=== PATIENT | male | born 1965 | race Caucasian/White ===

== ENCOUNTER 2021-02-25 22:22 | Emergency (ER) | payer MEDICAID ==
--- NOTE | 2021-02-25 23:15 | EDM.PDOC ---
ED HPI GENERAL MEDICAL PROBLEM - General Chief Complaint: General Stated Complaint: PAIN IN RIBS AFTER FALL Time Seen by Provider: 02/25/21 22:54 Source of Information: Reports: Patient History Limitations: Reports: No Limitations - History of Present Illness INITIAL COMMENTS - FREE TEXT/NARRATIVE: Luis Eduardo is a 85-year-old male presenting to the ED for evaluation of right posterior chest pain. Patient [place] (3 days ago) and fell hitting his back on the rocks. The patient was able to get back up and did not have much in the way of symptoms after that. Is unclear whether he was pretreated with any alcohol or not at the time. Over the course of the last several days his pain is continued to increase to the point tonight he is complaining of severe pain. He tried to golf today but states that every time he took a swing it felt like he was going to drop him to his needs. He does report having pain with breathing as well but denies any shortness of breath. There is no visible bruising of his back. The patient's focal pain is at the level of T10 lateral to the lateral scapular line. Patient has been taking Aleve for the pain which has been inadequate. He is concerned that he may have broken a rib. Right Back Pain Score (Numeric/FACES): 9 - Related Data Allergies Allergy/AdvReac Type Severity Reaction Status Date / Time Cczunvy-Jcw-Dsv Reductase Allergy Muscle Verified 02/25/21 23:00 Inhibitor Aches Home Meds: Home Meds Levothyroxine 1 tab PO DAILY 02/25/21 [History] Sildenafil [Revatio] 1 tab PO ASDIRECTED PRN 02/25/21 [History] busPIRone [Buspar] 1 tab PO BEDTIME PRN 02/25/21 [History] clonazePAM [Clonazepam] 1 tab PO ASDIRECTED PRN 02/25/21 [History] Lidocaine 5% [Lidoderm 5%] 1 patch TOP DAILY #10 patch 02/26/21 [Rx] Past Medical History HEENT History: Reports: Impaired Vision Psychiatric History: Reports: Anxiety Endocrine/Metabolic History: Reports: Hyperthyroidism - Infectious Disease History Infectious Disease History: Reports: Chicken Pox - Past Surgical History Musculoskeletal Surgical History: Reports: Arthroscopic Knee Social & Family History - Tobacco Use Tobacco Use Status *Q: Never Tobacco User - Caffeine Use Caffeine Use: Reports: Coffee, Energy Drinks - Alcohol Use Date of Last Drink: 02/25/21 - Recreational Drug Use Recreational Drug Use: No ED ROS GENERAL - Review of Systems Review Of Systems: See Below Constitutional: Reports: No Symptoms HEENT: Reports: No Symptoms Respiratory: Reports: Shortness of Breath (Only secondary to pain) Cardiovascular: Reports: Chest Pain (Right posterior chest pain that worsens with deep inspiration or movement.) Endocrine: Reports: No Symptoms GI/Abdominal: Reports: No Symptoms : Reports: No Symptoms Musculoskeletal: Reports: No Symptoms Skin: Denies: Bruising Neurological: Reports: No Symptoms Psychiatric: Reports: No Symptoms Hematologic/Lymphatic: Reports: No Symptoms Immunologic: Reports: No Symptoms ED EXAM, GENERAL - Physical Exam Exam: See Below Exam Limited By: Intoxication General Appearance: Alert, Anxious, Mild Distress Eye Exam: Bilateral Eye: EOMI, PERRL Head: Atraumatic, Normocephalic Neck: Normal Inspection, Supple Respiratory/Chest: Lungs Clear, Normal Breath Sounds, Splinting (Mild splinting with respiration), Other (Point tenderness with palpation over the posterior right chest at the level of T10 just lateral to the lateral scapular line. No obvious bruising identified.) Cardiovascular: Normal Peripheral Pulses, Regular Rate, Rhythm, No Murmur GI/Abdominal: Normal Bowel Sounds, Soft, Non-Tender Back Exam: Normal Inspection, Full Range of Motion, Other (Pain with movement of the back only and that it causes irritation over the area of the posterior chest) Extremities: Normal Inspection Neurological: Alert, Oriented, Normal Cognition, No Motor/Sensory Deficits Psychiatric: Normal Affect, Normal Mood Skin Exam: Warm, Dry, Intact, Normal Color. No: Ecchymosis Course - Vital Signs Last Recorded V/S: Last Vital Signs Temp 35.6 C L 02/25/21 23:05 Pulse 77 02/25/21 23:05 Resp 16 02/25/21 23:05 BP 119/84 02/25/21 23:05 Pulse Ox 96 02/25/21 23:05 - Orders/Labs/Meds Meds: Medications Discontinued Medications Generic Name Dose Route Start Last Admin Trade Name Freq PRN Reason Stop Dose Admin Lidocaine 700 mg 02/25/21 23:46 02/25/21 23:53 Lidocaine 5% 700 Mg Patch TRDERM 02/25/21 23:47 700 mg ONETIME ONE Administration - Radiology Interpretation Free Text/Narrative:: I reviewed the CT of the chest without contrast as well as the report showing: - Re-Assessments/Exams Free Text/Narrative Re-Assessment/Exam: 02/26/21 00:[address] of the chest showing no evidence of rib fractures, pulmonary injury, injury to the liver, pneumothorax, or pleural effusion. The patient had a Lidoderm 5% patch applied to the area of pain which is now markedly improved. We will continue to use this on an ongoing basis. I did give the patient a work note excusing him from work this week as I do not believe he should be doing any heavy lifting until recovered. Indications return to the ED were discussed and patient was discharged in satisfactory condition. Departure - Departure Time of Disposition: 00:39 Disposition: Home, Self-Care 01 Clinical Impression: Chest wall contusion Qualifiers: Encounter type: initial encounter Laterality: right Qualified Code(s): S20.211A - Contusion of right front wall of thorax, initial encounter - Discharge Information Prescriptions: Lidocaine 5% [Lidoderm 5%] 1 patch TOP DAILY #10 patch Instructions: Rib Contusion, Blunt Chest Trauma Referrals: Dieter Bradshaw MD [Primary Care Provider] - Forms: ED Department Discharge Care Plan Goals: The evaluation including your CT of the chest without contrast is determined that you have a deep bruise to the right posterior chest wall as a result of falling on the rocks. There was no evidence for any rib fracture or lung injury. Your liver also appeared to be uninjured. We will put you on Lidoderm 5% lidocaine patches. You may apply one for 12 hours and then have it off for 12 hours each day. I have prescribed 10 of them for you. I would like you to rest this week with very light duty without lifting more than 10 pounds. This will allow the muscle to heal as these are core muscles and constantly in movement. Return to the ER should you develop any significant shortness of breath. Sepsis Event Note (ED) - Evaluation Sepsis Screening Result: No Definite Risk - Focused Exam Vital Signs: Vital Signs Temp Pulse Resp BP Pulse Ox 02/25/21 23:05 35.6 C L 77 16 119/84 96 02/25/21 22:57 35.6 C L 77 16 119/84 96 - Problem List & Annotations (1) Chest wall contusion SNOMED Code(s): 63574813 Code(s): S20.219A - CONTUSION OF UNSPECIFIED FRONT WALL OF THORAX, INIT ENCNTR Status: Acute Priority: Medium Current Visit: Yes Qualifiers: Encounter type: initial encounter Laterality: right Qualified Code(s): S20.211A - Contusion of right front wall of thorax, initial encounter - Problem List Review Problem List Initiated/Reviewed/Updated: Yes
[2021-02-25] MEDS ORDERED: Lidocaine 5% 700 MG Patch TRDERM ONE (23:46)
--- NOTE | 2021-02-26 00:08 | CRLCT ---
For Patients: As a result of the Century Cures Act, medical imaging exams and procedure reports are released immediately into your electronic medical record. You may view this report before your referring provider. If you have questions, please contact your health care provider. INDICATION: Fall 2 days ago, right posterior chest pain TECHNIQUE: CT chest without i.v. contrast. Coronal and sagittal reformats were obtained. COMPARISON: None FINDINGS: Cardiovascular: The heart has an unremarkable appearance and size. The pulmonary arteries are unremarkable in appearance. No sign of aneurysm seen in the thoracic aorta. The presence of aortic dissection cannot be evaluated without the use of intravenous contrast. Mediastinum: Calcified subcarinal left hilar lymph nodes are present from prior granulomatous infection. Lung: Both lungs are unremarkable in appearance. Pleura and pericardium: No sign of pleural effusion seen. No significant pericardial effusion is present. Chest wall and axilla: No mass or adenopathy seen. Bone: No definite acute osseous injuries are seen. Upper abdomen: Unremarkable. IMPRESSION: 1. Unremarkable CT appearance of the chest. Dictated by Harrison Roberson MD @ 02/26/2021 12:07:04 AM Please note that all CT scans at this facility use dose modulation, iterative reconstruction, and/or weight-based dosing when appropriate to reduce radiation dose to as low as reasonably achievable. Dictated by: Harrison Roberson MD @ 02/26/2021 00:07:22 (Electronically Signed)
== END 2021-02-26 00:51 | disposition home or self-care (01) ==
LOC: EDBD 22:22 → JP.ED 22:22
DX: S20.211A Contusion of right front wall of thorax, initial encounter (principal); E03.9 Hypothyroidism, unspecified; Z79.899 Other long term (current) drug therapy; Z88.8 Allergy status to other drugs, medicaments and biological substances; W18.09XA Striking against other object with subsequent fall, initial encounter
CPT/HCPCS: 71250; 99283; A9270

== ENCOUNTER 2021-03-02 22:51 | Emergency (ER) | payer MEDICAID ==
--- NOTE | 2021-03-03 00:43 | EDM.PDOCBH ---
ED HPI GENERAL MEDICAL PROBLEM - General Chief Complaint: Drug or Alcohol Abuse Stated Complaint: POS ALCOHOL POSIONING?/ NEEDS TO DETOX? Time Seen by Provider: 03/03/21 00:05 Source of Information: Reports: Patient, Significant Other History Limitations: Reports: Altered Mental Status, Intoxication - History of Present Illness INITIAL COMMENTS - FREE TEXT/NARRATIVE: 55-year-old male, chronic alcoholic, has been drinking for a week. No physical symptoms but is significant other is worried that he has "alcohol poisoning". He took 5 clonazepam yesterday when she would not let him drink. Duration: Week(s): (Drinking for 1 week after several months of sobriety) back pain Pain Score (Numeric/FACES): 0 - Related Data Allergies Allergy/AdvReac Type Severity Reaction Status Date / Time Gxkaibl-Ryg-Rhz Reductase Allergy Muscle Verified 03/02/21 23:41 Inhibitor Aches Home Meds: Home Meds Levothyroxine 1 tab PO DAILY 02/25/21 [History] Sildenafil [Revatio] 1 tab PO ASDIRECTED PRN 02/25/21 [History] busPIRone [Buspar] 1 tab PO BEDTIME PRN 02/25/21 [History] clonazePAM [Clonazepam] 1 tab PO ASDIRECTED PRN 02/25/21 [History] Lidocaine 5% [Lidoderm 5%] 1 patch TOP DAILY #10 patch 02/26/21 [Rx] Past Medical History HEENT History: Reports: Impaired Vision Psychiatric History: Reports: Anxiety Endocrine/Metabolic History: Reports: Hyperthyroidism - Infectious Disease History Infectious Disease History: Reports: Chicken Pox - Past Surgical History Musculoskeletal Surgical History: Reports: Arthroscopic Knee Social & Family History - Tobacco Use Tobacco Use Status *Q: Never Tobacco User - Caffeine Use Caffeine Use: Reports: Coffee, Energy Drinks - Recreational Drug Use Recreational Drug Use: No ED ROS GENERAL - Review of Systems Review Of Systems: See Below Constitutional: Denies: Fever, Chills Respiratory: Denies: Shortness of Breath, Cough Cardiovascular: Denies: Chest Pain GI/Abdominal: Denies: Abdominal Pain, Hematemesis, Nausea, Vomiting Skin: Reports: No Symptoms Neurological: Denies: Headache Psychiatric: Reports: Anxiety ED EXAM, BEHAVIORAL HEALTH - Physical Exam Exam: See Below Exam Limited By: No Limitations General Appearance: Alert, No Apparent Distress, Other (Obviously intoxicated) Eye Exam: Bilateral Eye: Conjunctival Injection Head: Atraumatic Respiratory/Chest: No Respiratory Distress Cardiovascular: Regular Rate, Rhythm Neurological: Alert, No Motor/Sensory Deficits Psychiatric: Oriented. No: Depressed Mood, Flat Affect Skin Exam: Warm, Dry COURSE, BEHAVIORAL HEALTH COMP - Course Vital Signs: Last Vital Signs Temp 97.9 F 03/02/21 23:58 Pulse 83 03/02/21 23:58 Resp 16 03/02/21 23:58 BP 137/86 03/02/21 23:58 Pulse Ox 96 03/02/21 23:58 Re-Assessment/Re-Exam: Could not convince the patient to go to detox. I reassured both him and his significant other that he will not go through serious withdrawal after drinking for just 1 week. He was given ten 1 mg clonazepam to take every 8 hours that can be given to him by his significant other if he is not drinking, he should not do both. If this is unsuccessful I recommended detox at [facility]. He has been there several times before. Departure - Departure Time of Disposition: 00:45 Disposition: Home, Self-Care 01 Clinical Impression: Alcohol abuse - Discharge Information Instructions: Alcohol Intoxication, [id number] Referrals: PCP,None [Primary Care Provider] - Forms: ED Department Discharge Care Plan Goals: Use clonazepam every 8 hours as needed after stopping alcohol, there is no reason to do both. Avoid all alcohol intake in the future. Sepsis Event Note (ED) - Evaluation Sepsis Screening Result: No Definite Risk - Focused Exam Vital Signs: Vital Signs Temp Pulse Resp BP Pulse Ox 03/02/21 23:58 97.9 F 83 16 137/86 96 03/02/21 23:38 97.9 F 83 16 137/86 96
== END 2021-03-03 01:00 | disposition home or self-care (01) ==
LOC: JP.ED 22:51
DX: F10.129 Alcohol abuse with intoxication, unspecified (principal); E03.9 Hypothyroidism, unspecified; Z88.8 Allergy status to other drugs, medicaments and biological substances; Z79.899 Other long term (current) drug therapy
CPT/HCPCS: 99283

== ENCOUNTER 2023-03-23 12:13 | Emergency (ER) | payer MEDICAID ==
[2023-03-23] MEDS ORDERED: Sodium Chloride 0.9% 10 ML Syringe FLUSH PRN (13:22)
[2023-03-23 13:35] LABS: HEMATOCRIT 51.3 % (38.4-49.7); MEAN CORPUSCULAR HEMOGLOBIN 32.2 pg (31.6-35.5); MEAN CORPUSCULAR HGB CONC 35.7 g/dL (31.6-35.5); MEAN CORPUSCULAR VOLUME 90.3 fL (81.4-99.0); RED BLOOD CELL COUNT 5.68 M/uL (4.14-5.76); WHITE BLOOD CELL COUNT,WBC 7.4 K/uL (3.2-11.0)
[2023-03-23 13:38] LABS: HEMOGLOBIN 18.3 g/dL (12.9-16.9)
[2023-03-23] MEDS ORDERED: Sodium Chloride 0.9% 1,000 ML IV ONE (13:38)
[2023-03-23 13:59] LABS: ALANINE AMINOTRANSFERASE,ALT 50 U/L (12-78); ALKALINE PHOSPHATASE 78 U/L (46-116); ANION GAP 12.6 mmol/L (5.0-14.0); ASPARTATE AMNIOTRANSFERASE,AST 40 U/L (15-37); BILIRUBIN TOTAL 0.3 mg/dL (0.2-1.0); BLOOD UREA NITROGEN,BUN 9 mg/dL (7-18); CALCIUM 8.1 mg/dL (8.5-10.1); CARBON DIOXIDE,CO2 27 mmol/L (21-32); CHLORIDE,CL 102 mmol/L (100-108); ESTIMATED GFR 87 mL/min (>60); GLUCOSE RANDOM 116 mg/dL (74-106); MAGNESIUM 2.1 mg/dL (1.8-2.4); POTASSIUM,K 3.8 mmol/L (3.6-5.2); PROTEIN TOTAL,TP 8.1 g/dL (6.4-8.2); SODIUM,NA 142 mmol/L (140-148)
[2023-03-23] MEDS ORDERED: Sodium Chloride 0.9% 1,000 ML IV SCH (14:45)
[2023-03-23 15:18] LABS: AMPHETAMINES SCREEN, URINE NEGATIVE (NEGATIVE); BARBITURATE SCREEN,URINE NEGATIVE (NEGATIVE); BENZODIAZEPINES SCREEN,URINE NEGATIVE (NEGATIVE); METHADONE SCREEN, URINE NEGATIVE (NEGATIVE); METHAMPHETAMINES SCREEN, URINE NEGATIVE (NEGATIVE); OXYCODONE SCREEN,URINE NEGATIVE (NEGATIVE); PROPOXYPHENE SCREEN,URINE NEGATIVE (NEGATIVE); THC SCREEN,URINE 50 NG/ML NEGATIVE (NEGATIVE)
[2023-03-23] MEDS ORDERED: Diazepam 5 MG Tab PO ONE (19:18)
== END 2023-03-23 19:52 | disposition home or self-care (01) ==
LOC: JP.ED 12:13
DX: F10.129 Alcohol abuse with intoxication, unspecified (principal); E05.90 Thyrotoxicosis, unspecified without thyrotoxic crisis or storm; Z88.8 Allergy status to other drugs, medicaments and biological substances; Z79.899 Other long term (current) drug therapy
CPT/HCPCS: 36415; 80053; 80305; 80307; 83735; 85027; 96360; 96361; 99284; A9270; J3490; J7030

== ENCOUNTER 2023-05-17 17:31 | Inpatient (IN) | payer MEDICAID ==
[2023-05-17 18:38] LABS: BASOPHILS ABSOLUTE AUTO 0.04 K/uL (0.00-0.10); EOSINOPHILS ABSOLUTE AUTO 0.05 K/uL (0.00-0.40); EOSINOPHILS PERCENT AUTO 1.3 % (0.0-5.4); HEMATOCRIT 43.9 % (38.4-49.7); HEMOGLOBIN 15.4 g/dL (12.9-16.9); IMMATURE GRAN ABSOLUTE AUTO 0.04 K/uL (0.00-0.23); LYMPHOCYTES ABSOLUTE AUTO 1.43 K/uL (0.8-3.3); LYMPHOCYTES PERCENT AUTO 36.5 % (11.4-47.7); MEAN CORPUSCULAR HEMOGLOBIN 32.9 pg (31.6-35.5); MEAN CORPUSCULAR HGB CONC 35.1 g/dL (31.6-35.5); MEAN CORPUSCULAR VOLUME 93.8 fL (81.4-99.0); MONOCYTES ABSOLUTE AUTO 0.42 K/uL (0.20-0.90); MONOCYTES PERCENT AUTO 10.7 % (3.3-12.6); NEUTROPHILS ABSOLUTE AUTO 1.94 K/uL (1.0-7.6); NEUTROPHILS PERCENT AUTO 49.5 % (40.0-78.1); PLATELET COUNT,PLT 139 K/uL (130-375); RED BLOOD CELL COUNT 4.68 M/uL (4.14-5.76); WHITE BLOOD CELL COUNT,WBC 3.9 K/uL (3.2-11.0)
[2023-05-17 18:58] LABS: PROTHROMBIN TIME 9.9 sec (9.2-10.6)
[2023-05-17 19:02] LABS: ALANINE AMINOTRANSFERASE,ALT 108 U/L (12-78); ALBUMIN 3.9 g/dL (3.4-5.0); ALKALINE PHOSPHATASE 104 U/L (46-116); ANION GAP 13.3 mmol/L (5.0-14.0); ASPARTATE AMNIOTRANSFERASE,AST 154 U/L (15-37); BILIRUBIN TOTAL 0.4 mg/dL (0.2-1.0); BLOOD UREA NITROGEN,BUN 12 mg/dL (7-18); C-REACTIVE PROTEIN <0.05 mg/dL (0.0-0.3); CALCIUM 7.8 mg/dL (8.5-10.1); CARBON DIOXIDE,CO2 28 mmol/L (21-32); CHLORIDE,CL 102 mmol/L (100-108); CREATININE 1.1 mg/dL (0.8-1.3); EST CRCL DRUG DOSING (CG) 69.59 mL/min; ESTIMATED GFR 77 mL/min (>60); GLUCOSE RANDOM 116 mg/dL (74-106); POTASSIUM,K 3.8 mmol/L (3.6-5.2); PROTEIN TOTAL,TP 7.7 g/dL (6.4-8.2); SODIUM,NA 143 mmol/L (140-148)
[2023-05-17] MEDS ORDERED: Sodium Chloride 0.9% 1,000 ML IV ONE (19:21)
[2023-05-17] MEDS ORDERED: Sodium Chloride 0.9% 50 ML IV SCH (19:30)
[2023-05-17] MEDS ORDERED: Iopamidol 612 MG/ML 100 ML Bottle IV SCH (19:30)
[2023-05-17] MEDS ORDERED: Calcium Carbonate 500 MG Tab.Chew PO ONE (19:39)
[2023-05-17] MEDS ORDERED: LORazepam 2 MG/ML SDV IVPUSH ONE (22:29)
[2023-05-18] MEDS ORDERED: LORazepam 2 MG/ML SDV IVPUSH ONE (00:11)
[2023-05-18] MEDS ORDERED: Gabapentin 400 MG Cap PO ONE (00:15)
[2023-05-18] MEDS ORDERED: Ondansetron 4 MG/2 ML SDV IV PRN (00:37)
[2023-05-18] MEDS ORDERED: Naloxone 0.4 MG/ML SDV IVPUSH PRN (00:37)
[2023-05-18] MEDS ORDERED: Magnesium Hydroxide 400 MG/5 ML Susp 30 ML Cup PO PRN (00:37)
[2023-05-18] MEDS ORDERED: Ondansetron 4 MG Tab.DIS PO PRN (00:37)
[2023-05-18] MEDS ORDERED: Ibuprofen 600 MG Tab PO PRN (00:37)
[2023-05-18] MEDS ORDERED: Sennosides/Docusate Sodium 50-8.6 MG Tab PO PRN (00:37)
[2023-05-18] MEDS ORDERED: Nicotine 21 MG/24 Hr Patch TRDERM PRN (00:37)
[2023-05-18] MEDS: Sodium Chloride 0.9% 1,000 ML IV SCH ×2 (01:26→09:19)
[2023-05-18] MEDS: LORazepam 2 MG/ML SDV IV SCH ×5 (01:47→23:58)
[2023-05-18] MEDS: HYDROmorphone 0.5 MG/0.5 ML Syringe IVPUSH PRN ×2 (01:47→08:34)
[2023-05-18 04:51] LABS: HEMATOCRIT 34.9 % (38.4-49.7); HEMOGLOBIN 12.1 g/dL (12.9-16.9); MEAN CORPUSCULAR HEMOGLOBIN 33.2 pg (31.6-35.5); MEAN CORPUSCULAR HGB CONC 34.7 g/dL (31.6-35.5); MEAN CORPUSCULAR VOLUME 95.6 fL (81.4-99.0); RED BLOOD CELL COUNT 3.65 M/uL (4.14-5.76); WHITE BLOOD CELL COUNT,WBC 3.7 K/uL (3.2-11.0)
[2023-05-18 05:12] LABS: PROTHROMBIN TIME 10.5 sec (9.2-10.6)
[2023-05-18 05:19] LABS: A/G RATIO 1.1 (1.2-2.2); ALANINE AMINOTRANSFERASE,ALT 80 U/L (12-78); ALBUMIN 3.2 g/dL (3.4-5.0); ALKALINE PHOSPHATASE 78 U/L (46-116); ANION GAP 11.3 mmol/L (5.0-14.0); ASPARTATE AMNIOTRANSFERASE,AST 109 U/L (15-37); BILIRUBIN TOTAL 0.4 mg/dL (0.2-1.0); BLOOD UREA NITROGEN,BUN 10 mg/dL (7-18); CALCIUM 7.1 mg/dL (8.5-10.1); CARBON DIOXIDE,CO2 28 mmol/L (21-32); CHLORIDE,CL 102 mmol/L (100-108); CREATININE 0.9 mg/dL (0.8-1.3); ESTIMATED GFR 98 mL/min (>60); GLUCOSE RANDOM 100 mg/dL (74-106); MAGNESIUM 1.9 mg/dL (1.8-2.4); POTASSIUM,K 3.8 mmol/L (3.6-5.2); PROTEIN TOTAL,TP 6.2 g/dL (6.4-8.2); SODIUM,NA 141 mmol/L (140-148)
[2023-05-18] MEDS: LORazepam 1 MG Tab PO SCH ×10 (07:03→20:59)
[2023-05-18 07:10] LABS: APPEARANCE,URINE CLEAR (CLEAR); BILIRUBIN,URINE NEGATIVE (NEGATIVE); COLOR,URINE YELLOW (YELLOW); GLUCOSE,URINE NEGATIVE (NEGATIVE); KETONES,URINE NEGATIVE (NEGATIVE); LEUKOCYTE ESTERASE,URINE NEGATIVE (NEGATIVE); NITRITE,URINE NEGATIVE (NEGATIVE); OCCULT BLOOD,URINE SMALL (NEGATIVE); PH,URINE 6.5 (5.0-8.0); PROTEIN,URINE 100 mg/dL (NEGATIVE); UROBILINOGEN,URINE 0.2 EU/dL (0.2-1.0)
[2023-05-18 07:17] LABS: AMORPHOUS SEDIMENT,URINE NOT SEEN; BACTERIA,URINE NOT SEEN; EPITHELIAL CELLS,URINE FEW; MUCUS,URINE FEW; WBC,URINE 0-5 (0-5)
[2023-05-18] MEDS ORDERED: Levothyroxine 25 MCG Tab PO SCH (07:30)
[2023-05-18] MEDS ORDERED: Levothyroxine 100 MCG Tab PO SCH (07:30)
[2023-05-18] MEDS: Levothyroxine 100 MCG, Levothyroxine 50 MCG, Levothyroxine 25 MCG PO SCH ×3 (07:31)
[2023-05-18] MEDS: Pantoprazole 40 MG Tab.CR PO SCH ×2 (07:31→16:23)
[2023-05-18] MEDS: Gabapentin 400 MG Cap PO SCH ×3 (08:18→20:59)
[2023-05-18] MEDS: Thiamine 100 MG Tab PO SCH (08:18)
[2023-05-18] MEDS: Folic Acid 1 MG Tab PO SCH (08:18)
[2023-05-18] MEDS: Acetaminophen 325 MG Tab PO PRN (13:14)
[2023-05-18] MEDS: oxyCODONE 5 MG Tab PO PRN (15:03)
[2023-05-18] MEDS ORDERED: Melatonin 3 MG Tab PO SCH (21:00)
[2023-05-18] MEDS: PHENobarbital Sodium 65 MG/ML SDV IVPUSH PRN (23:28)
[2023-05-19] MEDS: Haloperidol Lactate 5 MG/ML SDV IVPUSH PRN (00:34)
[2023-05-19] MEDS: LORazepam 2 MG/ML SDV IV SCH ×4 (00:34→23:41)
[2023-05-19] MEDS: Levothyroxine 100 MCG, Levothyroxine 50 MCG, Levothyroxine 25 MCG PO SCH ×3 (07:25)
[2023-05-19] MEDS: Pantoprazole 40 MG Tab.CR PO SCH ×2 (07:26→17:07)
[2023-05-19] MEDS: Gabapentin 400 MG Cap PO SCH ×3 (08:10→21:05)
[2023-05-19] MEDS: Thiamine 100 MG Tab PO SCH (08:10)
[2023-05-19] MEDS: Folic Acid 1 MG Tab PO SCH (08:10)
[2023-05-19] MEDS: LORazepam 1 MG Tab PO SCH ×4 (12:36→21:52)
[2023-05-19 18:09] LABS: HEPATITIS C AB CIA INTERP Negative (Negative); HEPATITIS C ANTIBODY CIA INDEX 0.04 IV
[2023-05-19] MEDS: oxyCODONE 5 MG Tab PO PRN (20:14)
[2023-05-19] MEDS: PHENobarbital Sodium 65 MG/ML SDV IVPUSH PRN (23:00)
[2023-05-20] MEDS: Haloperidol Lactate 5 MG/ML SDV IVPUSH PRN ×2 (00:05→03:37)
[2023-05-20] MEDS: Acetaminophen 325 MG Tab PO PRN (00:20)
[2023-05-20] MEDS: LORazepam 2 MG/ML SDV IV SCH ×3 (00:35→21:09)
[2023-05-20] MEDS: PHENobarbital Sodium 65 MG/ML SDV IVPUSH PRN (03:15)
[2023-05-20] MEDS: Levothyroxine 100 MCG, Levothyroxine 50 MCG, Levothyroxine 25 MCG PO SCH ×3 (09:16)
[2023-05-20] MEDS: LORazepam 1 MG Tab PO SCH ×2 (09:16→22:27)
[2023-05-20] MEDS: Gabapentin 400 MG Cap PO SCH ×3 (09:16→21:02)
[2023-05-20] MEDS: Folic Acid 1 MG Tab PO SCH (09:17)
[2023-05-20] MEDS: Pantoprazole 40 MG Tab.CR PO SCH ×2 (09:17→16:02)
[2023-05-20] MEDS: Thiamine 100 MG Tab PO SCH (09:17)
[2023-05-20] MEDS: oxyCODONE 5 MG Tab PO PRN (21:00)
[2023-05-21] MEDS: Gabapentin 400 MG Cap PO SCH ×2 (08:07→14:05)
[2023-05-21] MEDS: Thiamine 100 MG Tab PO SCH (08:07)
[2023-05-21] MEDS: Levothyroxine 100 MCG, Levothyroxine 50 MCG, Levothyroxine 25 MCG PO SCH ×3 (08:07)
[2023-05-21] MEDS: Pantoprazole 40 MG Tab.CR PO SCH (08:07)
[2023-05-21] MEDS: Folic Acid 1 MG Tab PO SCH (08:07)
[2023-05-21] MEDS: Acetaminophen 325 MG Tab PO PRN (12:39)
== END 2023-05-21 17:34 | disposition home or self-care (01) | DRG 897 ==
LOC: JP.ED 17:31 → JP.ICU 05-18 00:13 → UNDOADMIN 05-18 00:13
PROVIDERS: ADMIT Internal Medicine; ATTEND Internal Medicine
DX: F10.231 Alcohol dependence with withdrawal delirium (principal); F10.232 Alcohol dependence with withdrawal with perceptual disturbance; F10.221 Alcohol dependence with intoxication delirium; E05.90 Thyrotoxicosis, unspecified without thyrotoxic crisis or storm; N20.0 Calculus of kidney; F41.1 Generalized anxiety disorder; E03.9 Hypothyroidism, unspecified; R31.9 Hematuria, unspecified; F17.290 Nicotine dependence, other tobacco product, uncomplicated; Z87.820 Personal history of traumatic brain injury; Z88.8 Allergy status to other drugs, medicaments and biological substances; Z79.899 Other long term (current) drug therapy; Z98.890 Other specified postprocedural states; Z90.49 Acquired absence of other specified parts of digestive tract
CPT/HCPCS: 36415; 51798; 74177; 80053; 80307; 81001; 82140; 83605; 83690; 83735; 84443; 85025; 85027; 85610; 86140; 86803; 96361; 96374; 99223; 99233; 99238; 99284; 99285-25; A9270-GY; J1170; J1630; J2060; J2560; J3490; J7030; Q9967; U0002

== ENCOUNTER 2024-06-30 17:25 | Emergency (ER) | payer MEDICAID ==
[2024-06-30 18:22] LABS: BASOPHILS ABSOLUTE AUTO 0.05 K/uL (0.00-0.10); BASOPHILS PERCENT AUTO 0.9 % (0.1-1.3); EOSINOPHILS ABSOLUTE AUTO 0.04 K/uL (0.00-0.40); EOSINOPHILS PERCENT AUTO 0.7 % (0.0-5.4); HEMATOCRIT 45.4 % (38.4-49.7); HEMOGLOBIN 15.8 g/dL (12.9-16.9); IMMATURE GRAN ABSOLUTE AUTO 0.06 K/uL (0.00-0.23); LYMPHOCYTES ABSOLUTE AUTO 1.98 K/uL (0.8-3.3); LYMPHOCYTES PERCENT AUTO 34.4 % (11.4-47.7); MEAN CORPUSCULAR HEMOGLOBIN 31.6 pg (31.6-35.5); MEAN CORPUSCULAR HGB CONC 34.8 g/dL (31.6-35.5); MEAN CORPUSCULAR VOLUME 90.8 fL (81.4-99.0); MONOCYTES ABSOLUTE AUTO 0.47 K/uL (0.20-0.90); MONOCYTES PERCENT AUTO 8.2 % (3.3-12.6); NEUTROPHILS ABSOLUTE AUTO 3.15 K/uL (1.0-7.6); NEUTROPHILS PERCENT AUTO 54.8 % (40.0-78.1); PLATELET COUNT,PLT 252 K/uL (130-375); WHITE BLOOD CELL COUNT,WBC 5.8 K/uL (3.2-11.0)
[2024-06-30 18:54] LABS: A/G RATIO 1.1 (1.2-2.2); ALANINE AMINOTRANSFERASE,ALT 45 U/L (12-78); ALBUMIN 4.1 g/dL (3.4-5.0); ALKALINE PHOSPHATASE 62 U/L (46-116); ANION GAP 10.7 mmol/L (5.0-14.0); ASPARTATE AMNIOTRANSFERASE,AST 30 U/L (15-37); BILIRUBIN TOTAL 0.2 mg/dL (0.2-1.0); BLOOD UREA NITROGEN,BUN 14 mg/dL (7-18); CALCIUM 8.3 mg/dL (8.5-10.1); CARBON DIOXIDE,CO2 29 mmol/L (21-32); CHLORIDE,CL 106 mmol/L (100-108); CREATININE 1.2 mg/dL (0.8-1.3); EST CRCL DRUG DOSING (CG) 71.85 mL/min; ESTIMATED GFR 69 mL/min (>60); GLUCOSE RANDOM 88 mg/dL (74-106); POTASSIUM,K 3.7 mmol/L (3.6-5.2); PROTEIN TOTAL,TP 7.9 g/dL (6.4-8.2); SODIUM,NA 146 mmol/L (140-148)
[2024-06-30] MEDS: Sodium Chloride 0.9% 1,000 ML IV SCH ×2 (20:23→21:24)
[2024-06-30 23:01] LABS: AMPHETAMINES SCREEN, URINE NEGATIVE (NEGATIVE); BARBITURATE SCREEN,URINE NEGATIVE (NEGATIVE); BENZODIAZEPINES SCREEN,URINE NEGATIVE (NEGATIVE); METHADONE SCREEN, URINE NEGATIVE (NEGATIVE); METHAMPHETAMINES SCREEN, URINE NEGATIVE (NEGATIVE); OXYCODONE SCREEN,URINE NEGATIVE (NEGATIVE); PROPOXYPHENE SCREEN,URINE NEGATIVE (NEGATIVE); THC SCREEN,URINE 50 NG/ML NEGATIVE (NEGATIVE)
[2024-06-30] MEDS: Ondansetron 4 MG Tab.DIS PO ONE (23:16)
[2024-06-30 23:28] LABS: APPEARANCE,URINE CLEAR (CLEAR); BILIRUBIN,URINE NEGATIVE (NEGATIVE); COLOR,URINE YELLOW (YELLOW); GLUCOSE,URINE NEGATIVE (NEGATIVE); KETONES,URINE NEGATIVE (NEGATIVE); LEUKOCYTE ESTERASE,URINE NEGATIVE (NEGATIVE); NITRITE,URINE NEGATIVE (NEGATIVE); OCCULT BLOOD,URINE NEGATIVE (NEGATIVE); PH,URINE 5.5 (5.0-8.0); PROTEIN,URINE NEGATIVE (NEGATIVE); UROBILINOGEN,URINE 0.2 EU/dL (0.2-1.0)
[2024-06-30 23:29] LABS: AMORPHOUS SEDIMENT,URINE NOT SEEN; BACTERIA,URINE RARE; EPITHELIAL CELLS,URINE FEW; MUCUS,URINE FEW; RBC,URINE NOT SEEN (0-5); WBC,URINE 0-5 (0-5)
[2024-07-01] MEDS: Ondansetron 4 MG/2 ML SDV IVPUSH ONE (09:42)
== END 2024-07-01 10:21 | disposition home or self-care (01) ==
LOC: JP.ED 17:25
DX: F10.131 Alcohol abuse with withdrawal delirium (principal); Z90.49 Acquired absence of other specified parts of digestive tract; F17.210 Nicotine dependence, cigarettes, uncomplicated; E03.9 Hypothyroidism, unspecified; Z79.890 Hormone replacement therapy; Z79.899 Other long term (current) drug therapy; Z88.8 Allergy status to other drugs, medicaments and biological substances
CPT/HCPCS: 36415; 70450; 80053; 80305; 80307; 81001; 83605; 83690; 84443; 85025; 96374; 99284; J2405; J7030; Q0162

== ENCOUNTER 2024-08-03 16:15 | Emergency (ER) | payer MEDICAID ==
[2024-08-03 16:44] LABS: BASOPHILS ABSOLUTE AUTO 0.05 K/uL (0.00-0.10); BASOPHILS PERCENT AUTO 0.9 % (0.1-1.3); EOSINOPHILS ABSOLUTE AUTO 0.03 K/uL (0.00-0.40); EOSINOPHILS PERCENT AUTO 0.5 % (0.0-5.4); HEMATOCRIT 42.3 % (38.4-49.7); HEMOGLOBIN 15.1 g/dL (12.9-16.9); IMMATURE GRAN ABSOLUTE AUTO 0.03 K/uL (0.00-0.23); IMMATURE GRAN PERCENT AUTO 0.5 % (0.0-0.7); LYMPHOCYTES ABSOLUTE AUTO 2.06 K/uL (0.8-3.3); LYMPHOCYTES PERCENT AUTO 36.2 % (11.4-47.7); MEAN CORPUSCULAR HEMOGLOBIN 32.7 pg (31.6-35.5); MEAN CORPUSCULAR HGB CONC 35.7 g/dL (31.6-35.5); MEAN CORPUSCULAR VOLUME 91.6 fL (81.4-99.0); MONOCYTES ABSOLUTE AUTO 0.56 K/uL (0.20-0.90); MONOCYTES PERCENT AUTO 9.8 % (3.3-12.6); NEUTROPHILS ABSOLUTE AUTO 2.96 K/uL (1.0-7.6); NEUTROPHILS PERCENT AUTO 52.1 % (40.0-78.1); PLATELET COUNT,PLT 195 K/uL (130-375); RED BLOOD CELL COUNT 4.62 M/uL (4.14-5.76); WHITE BLOOD CELL COUNT,WBC 5.7 K/uL (3.2-11.0)
[2024-08-03 17:06] LABS: ALANINE AMINOTRANSFERASE,ALT 42 U/L (12-78); ALBUMIN 3.9 g/dL (3.4-5.0); ALKALINE PHOSPHATASE 71 U/L (46-116); ANION GAP 11.2 mmol/L (5.0-14.0); ASPARTATE AMNIOTRANSFERASE,AST 40 U/L (15-37); BILIRUBIN TOTAL 0.2 mg/dL (0.2-1.0); BLOOD UREA NITROGEN,BUN 10 mg/dL (7-18); CARBON DIOXIDE,CO2 29 mmol/L (21-32); CHLORIDE,CL 106 mmol/L (100-108); CREATININE 1.2 mg/dL (0.8-1.3); EST CRCL DRUG DOSING (CG) 67.62 mL/min; ESTIMATED GFR 69 mL/min (>60); GLUCOSE RANDOM 98 mg/dL (74-106); POTASSIUM,K 3.7 mmol/L (3.6-5.2); PROTEIN TOTAL,TP 7.7 g/dL (6.4-8.2); SODIUM,NA 146 mmol/L (140-148)
[2024-08-03] MEDS: LORazepam 2 MG/ML SDV IM ONE ×2 (19:04→23:48)
[2024-08-03 21:09] LABS: AMPHETAMINES SCREEN, URINE PRESUMPTIVE POSITIVE (NEGATIVE); BARBITURATE SCREEN,URINE NEGATIVE (NEGATIVE); BENZODIAZEPINES SCREEN,URINE NEGATIVE (NEGATIVE); METHADONE SCREEN, URINE NEGATIVE (NEGATIVE); METHAMPHETAMINES SCREEN, URINE NEGATIVE (NEGATIVE); OXYCODONE SCREEN,URINE NEGATIVE (NEGATIVE); PROPOXYPHENE SCREEN,URINE NEGATIVE (NEGATIVE); THC SCREEN,URINE 50 NG/ML NEGATIVE (NEGATIVE)
[2024-08-04 06:13] LABS: APPEARANCE,URINE CLEAR (CLEAR); BILIRUBIN,URINE NEGATIVE (NEGATIVE); COLOR,URINE YELLOW (YELLOW); GLUCOSE,URINE NEGATIVE (NEGATIVE); KETONES,URINE NEGATIVE (NEGATIVE); LEUKOCYTE ESTERASE,URINE NEGATIVE (NEGATIVE); NITRITE,URINE NEGATIVE (NEGATIVE); OCCULT BLOOD,URINE TRACE-LYSED (NEGATIVE); PH,URINE 5.5 (5.0-8.0); PROTEIN,URINE NEGATIVE (NEGATIVE); UROBILINOGEN,URINE 0.2 EU/dL (0.2-1.0)
[2024-08-04 06:31] LABS: AMORPHOUS SEDIMENT,URINE NOT SEEN; BACTERIA,URINE RARE; EPITHELIAL CELLS,URINE RARE; MUCUS,URINE RARE; RBC,URINE 0-5 (0-5); WBC,URINE 0-5 (0-5)
[2024-08-04] MEDS ORDERED: Levothyroxine 112 MCG Tab PO ONE (14:34)
[2024-08-04] MEDS: Levothyroxine 100 MCG, Levothyroxine 50 MCG, Levothyroxine 25 MCG PO ONE (14:45)
[2024-08-04] MEDS: LORazepam 2 MG/ML SDV IM PRN (14:45)
[2024-08-04] MEDS: Amphetamine/Dextroamphetamine Salts 10 MG Cap.ER PO ONE (14:45)
== END 2024-08-04 18:15 ==
LOC: JP.ED 16:15
DX: R46.89 Other symptoms and signs involving appearance and behavior (principal); F10.10 Alcohol abuse, uncomplicated; Z90.49 Acquired absence of other specified parts of digestive tract; Z87.891 Personal history of nicotine dependence; Z88.8 Allergy status to other drugs, medicaments and biological substances; Z79.890 Hormone replacement therapy; Z79.899 Other long term (current) drug therapy; Y90.8 Blood alcohol level of 240 mg/100 ml or more
CPT/HCPCS: 36415; 80053; 80305; 80307; 81001; 85025; 96372; 99285; A9270; J2060

== ENCOUNTER 2024-08-22 18:22 | Emergency (ER) | payer MEDICAID ==
[2024-08-22 19:04] LABS: BASOPHILS ABSOLUTE AUTO 0.06 K/uL (0.00-0.10); EOSINOPHILS ABSOLUTE AUTO 0.05 K/uL (0.00-0.40); EOSINOPHILS PERCENT AUTO 0.8 % (0.0-5.4); HEMATOCRIT 48.4 % (38.4-49.7); HEMOGLOBIN 16.8 g/dL (12.9-16.9); IMMATURE GRAN ABSOLUTE AUTO 0.08 K/uL (0.00-0.23); IMMATURE GRAN PERCENT AUTO 1.3 % (0.0-0.7); LYMPHOCYTES ABSOLUTE AUTO 2.43 K/uL (0.8-3.3); LYMPHOCYTES PERCENT AUTO 38.5 % (11.4-47.7); MEAN CORPUSCULAR HEMOGLOBIN 32.6 pg (31.6-35.5); MEAN CORPUSCULAR HGB CONC 34.7 g/dL (31.6-35.5); MEAN CORPUSCULAR VOLUME 93.8 fL (81.4-99.0); MONOCYTES ABSOLUTE AUTO 0.81 K/uL (0.20-0.90); MONOCYTES PERCENT AUTO 12.8 % (3.3-12.6); NEUTROPHILS ABSOLUTE AUTO 2.88 K/uL (1.0-7.6); NEUTROPHILS PERCENT AUTO 45.6 % (40.0-78.1); PLATELET COUNT,PLT 188 K/uL (130-375); RED BLOOD CELL COUNT 5.16 M/uL (4.14-5.76); WHITE BLOOD CELL COUNT,WBC 6.3 K/uL (3.2-11.0)
[2024-08-22 19:27] LABS: ALANINE AMINOTRANSFERASE,ALT 51 U/L (12-78); ALKALINE PHOSPHATASE 79 U/L (46-116); ANION GAP 8.9 mmol/L (5.0-14.0); ASPARTATE AMNIOTRANSFERASE,AST 45 U/L (15-37); BILIRUBIN TOTAL 0.3 mg/dL (0.2-1.0); BLOOD UREA NITROGEN,BUN 19 mg/dL (7-18); CALCIUM 8.6 mg/dL (8.5-10.1); CARBON DIOXIDE,CO2 29 mmol/L (21-32); CHLORIDE,CL 103 mmol/L (100-108); CREATININE 1.3 mg/dL (0.8-1.3); EST CRCL DRUG DOSING (CG) 58.15 mL/min; ESTIMATED GFR 63 mL/min (>60); GLUCOSE RANDOM 131 mg/dL (74-106); POTASSIUM,K 3.7 mmol/L (3.6-5.2); PROTEIN TOTAL,TP 8.2 g/dL (6.4-8.2); SODIUM,NA 141 mmol/L (140-148)
[2024-08-22 20:17] LABS: AMPHETAMINES SCREEN, URINE NEGATIVE (NEGATIVE); BARBITURATE SCREEN,URINE NEGATIVE (NEGATIVE); BENZODIAZEPINES SCREEN,URINE PRESUMPTIVE POSITIVE (NEGATIVE); METHADONE SCREEN, URINE NEGATIVE (NEGATIVE); METHAMPHETAMINES SCREEN, URINE NEGATIVE (NEGATIVE); OXYCODONE SCREEN,URINE NEGATIVE (NEGATIVE); PROPOXYPHENE SCREEN,URINE NEGATIVE (NEGATIVE); THC SCREEN,URINE 50 NG/ML NEGATIVE (NEGATIVE)
[2024-08-22] MEDS: OLANZapine 5 MG Tab PO ONE (20:33)
[2024-08-22] MEDS: LORazepam 1 MG Tab PO ONE (20:33)
== END 2024-08-23 08:00 | disposition home or self-care (01) ==
LOC: JP.ED 18:22
DX: F10.120 Alcohol abuse with intoxication, uncomplicated (principal); M25.521 Pain in right elbow; Z88.6 Allergy status to analgesic agent; Z79.890 Hormone replacement therapy; W19.XXXA Unspecified fall, initial encounter; Y90.8 Blood alcohol level of 240 mg/100 ml or more
CPT/HCPCS: 36415; 73070; 80053; 80305; 80307; 85025; 99284; A9270